=== PATIENT | female | born 1955 | race African-American/Black ===

== ENCOUNTER 2020-04-10 13:27 | Emergency (ER) | payer MEDICAID ==
[~2020-04-10] VITALS: Ht 170.2 cm; Wt 122.0 kg
[2020-04-10 14:46] LABS: BASOPHILS % 0.9 % (0.0-2.0); EOSINOPHILS % 3.6 % (0.0-5.0); HEMATOCRIT. 42.5 % (36.0-48.0); HEMOGLOBIN. 13.8 g/dL (12.0-16.0); MEAN CORPUSCULAR HEMOGLOBIN 29.9 pg (28.0-32.0); MEAN CORPUSCULAR VOLUME 92.1 fL (81.0-99.0); MONOCYTES % 6.8 % (2.0-8.0); NEUTROPHILS % 51.7 % (40.0-76.0); PLATELET 228 x1000/uL (130-400); RED BLOOD CELL COUNT 4.61 mill/uL (4.2-5.4); RED CELL DISTRIBUTION WIDTH 13.6 % (11.6-14.6)
[2020-04-10 14:52] LABS: CHLORIDE 108 mEq/L (98-107)
[2020-04-10 14:56] LABS: INR 1.1; PARTIAL THROMBOPLASTIN TIME 27.8 sec (23.4-31.0); PROTHROMBIN TIME 11.6 sec (9.6-11.0)
[2020-04-10] MEDS ORDERED: APIXABAN 5 MG TABLET PO STA (15:51)
[2020-04-10 16:57] VITALS: BP 215/106
== END 2020-04-10 17:03 | disposition home or self-care (01) ==
LOC: ER 13:44
DX: I82.401 Acute embolism and thrombosis of unspecified deep veins of right lower extremity (principal); M79.89 Other specified soft tissue disorders; I10 Essential (primary) hypertension; Z98.890 Other specified postprocedural states
CPT/HCPCS: 36415; 80053; 85025; 93005; 99284

== ENCOUNTER 2020-09-17 16:07 | Inpatient (IN) | payer MEDICAID, OTHER ==
[~2020-09-17] VITALS: Ht 170.2 cm; Wt 122.5 kg
[2020-09-17 17:54] LABS: BASOPHILS % 0.5 % (0.0-2.0); EOSINOPHILS % 4.2 % (0.0-5.0); HEMOGLOBIN. 14.6 g/dL (12.0-16.0); LYMPHOCYTES % 27.8 % (20.0-50.0); MEAN CORPUSCULAR HEMOGLOBIN 30.5 pg (28.0-32.0); MEAN CORPUSCULAR VOLUME 89.5 fL (81.0-99.0); MEAN PLATELET VOLUME 8.7 fl (7.4-10.4); MONOCYTES % 9.9 % (2.0-8.0); NEUTROPHILS % 57.6 % (40.0-76.0); PLATELET 220 x1000/uL (130-400); RED CELL DISTRIBUTION WIDTH 13.2 % (11.6-14.6)
[2020-09-17 17:57] LABS: CHLORIDE 112 mEq/L (98-107)
[2020-09-17] MEDS ORDERED: IOHEXOL-350 100 ML BOTTLE ONE (19:44)
[2020-09-17] MEDS ORDERED: [UNRECOGNIZED DRUG - REMARK] XX SCH (20:45)
[2020-09-17] MEDS ORDERED: AMLODIPINE 10MG TABLET PO ONE (21:00)
[2020-09-17] MEDS ORDERED: HYDRALAZINE HCL 10MG TABLET PO ONE (21:00)
[2020-09-17] MEDS ORDERED: HEPARIN BOLUS PRN aPTT 37-44 IV (21:15)
[2020-09-17] MEDS ORDERED: HEPARIN BOLUS PRN aPTT <36 IV (21:15)
[2020-09-17] MEDS ORDERED: HEPARIN 80 UNITS/KG BOLUS IV NR (21:30)
[2020-09-17] MEDS: HEPARIN 25,000 UNITS PREMIX 250 ML IV SCH (22:34)
[2020-09-18] VITALS (11 sets, daily range): BP systolic 110–169; BP diastolic 67–119
[2020-09-18] MEDS: CLONIDINE 0.2MG TABLET PO PRN ×3 (00:14→18:06)
[2020-09-18] MEDS ORDERED: MAGNESIUM 2 G PREMIX 50 ML IV ONE (02:00)
[2020-09-18] MEDS ORDERED: POTASSIUM CHLORIDE INJ 40 MEQ in DEXT 5% WATER 250 ML IV ONE (02:00)
[2020-09-18] MEDS ORDERED: ALTEPLASE 100 MG in CONTAINER,EMPTY 1 BAG IV NR (02:30)
[2020-09-18] MEDS ORDERED: ONDANSETRON HCL 4MG/2ML INJ IV PRN (12:45)
[2020-09-18] MEDS ORDERED: CLONIDINE 0.1MG TABLET PO PRN (12:45)
[2020-09-18] MEDS ORDERED: DIPHENHYDRAMINE 50MG/ML VIAL IV PRN (12:45)
[2020-09-18] MEDS ORDERED: ACETAMINOPHEN 325MG TABLET PO PRN (12:45)
[2020-09-18] MEDS ORDERED: IPRATROPIUM/ALBUTEROL 0.5-3(2.5)MG/3ML NEB HHN PRN (12:45)
[2020-09-18] MEDS: HEPARIN 25,000 UNITS PREMIX 250 ML IV SCH (14:09)
[2020-09-18] MEDS ORDERED: MAGN400C PO (17:23)
[2020-09-18] MEDS ORDERED: AMLO10TA80 MT (17:23)
[2020-09-18] MEDS: ENOXAPARIN 120MG/0.8ML SYR SUBCUT SCH (21:47)
[2020-09-19] VITALS (18 sets, daily range): BP systolic 116–164; BP diastolic 63–93
[2020-09-19 05:53] LABS: CHLORIDE 114 mEq/L (98-107); INR 1.3; PROTHROMBIN TIME 13.3 sec (9.6-11.0)
[2020-09-19 06:00] LABS: LDL CHOLESTEROL 122 mg/dL (5-100)
[2020-09-19 06:01] LABS: HDL CHOLESTEROL 45 mg/dL (40-59)
[2020-09-19 06:28] LABS: BASOPHILS % 0.4 % (0.0-2.0); EOSINOPHILS % 7.2 % (0.0-5.0); HEMATOCRIT. 37.5 % (36.0-48.0); HEMOGLOBIN. 12.4 g/dL (12.0-16.0); LYMPHOCYTES % 37.4 % (20.0-50.0); MEAN CORPUSCULAR HEMOGLOBIN 30.2 pg (28.0-32.0); MEAN CORPUSCULAR VOLUME 90.8 fL (81.0-99.0); MEAN PLATELET VOLUME 8.9 fl (7.4-10.4); MONOCYTES % 10.9 % (2.0-8.0); NEUTROPHILS % 44.1 % (40.0-76.0); PLATELET 179 x1000/uL (130-400); RED BLOOD CELL COUNT 4.13 mill/uL (4.2-5.4); RED CELL DISTRIBUTION WIDTH 13.5 % (11.6-14.6)
[2020-09-19] MEDS: ENOXAPARIN 120MG/0.8ML SYR SUBCUT SCH ×2 (08:24→20:03)
[2020-09-19] MEDS ORDERED: POTASSIUM CHLORIDE 20MEQ/PACKET PO SCH (09:00)
[2020-09-20] VITALS (12 sets, daily range): BP systolic 130–176; BP diastolic 65–98
[2020-09-20] MEDS: CLONIDINE 0.2MG TABLET PO PRN (06:16)
[2020-09-20 07:31] LABS: BASOPHILS % 0.5 % (0.0-2.0); EOSINOPHILS % 6.8 % (0.0-5.0); HEMATOCRIT. 37.6 % (36.0-48.0); HEMOGLOBIN. 12.6 g/dL (12.0-16.0); LYMPHOCYTES % 42.9 % (20.0-50.0); MEAN CORPUSCULAR HEMOGLOBIN 29.9 pg (28.0-32.0); MEAN CORPUSCULAR VOLUME 89.6 fL (81.0-99.0); MEAN PLATELET VOLUME 9.2 fl (7.4-10.4); MONOCYTES % 9.8 % (2.0-8.0); PLATELET 204 x1000/uL (130-400); RED CELL DISTRIBUTION WIDTH 13.5 % (11.6-14.6)
[2020-09-20 07:46] LABS: CHLORIDE 111 mEq/L (98-107)
[2020-09-20] MEDS: ENOXAPARIN 120MG/0.8ML SYR SUBCUT SCH ×2 (08:30→20:43)
[2020-09-20] MEDS ORDERED: POTASSIUM CHLORIDE 20MEQ TABLET SR PO NR (12:00)
[2020-09-21] VITALS (10 sets, daily range): BP systolic 135–165; BP diastolic 70–90
[2020-09-21 05:45] LABS: BASOPHILS % 0.5 % (0.0-2.0); EOSINOPHILS % 5.7 % (0.0-5.0); HEMATOCRIT. 39.6 % (36.0-48.0); LYMPHOCYTES % 45.4 % (20.0-50.0); MEAN CORPUSCULAR HEMOGLOBIN 30.1 pg (28.0-32.0); MEAN CORPUSCULAR VOLUME 91.6 fL (81.0-99.0); MEAN PLATELET VOLUME 9.4 fl (7.4-10.4); MONOCYTES % 9.3 % (2.0-8.0); NEUTROPHILS % 39.1 % (40.0-76.0); PLATELET 204 x1000/uL (130-400); RED BLOOD CELL COUNT 4.32 mill/uL (4.2-5.4); RED CELL DISTRIBUTION WIDTH 13.4 % (11.6-14.6)
[2020-09-21 05:47] LABS: CHLORIDE 110 mEq/L (98-107)
[2020-09-21] MEDS: ENOXAPARIN 120MG/0.8ML SYR SUBCUT SCH (09:15)
[2020-09-21] MEDS ORDERED: APIX5TAB MT (09:16)
[2020-09-21] MEDS ORDERED: APIX5TAB PO (09:16)
== END 2020-09-21 18:14 | disposition home or self-care (01) | DRG 134 ==
LOC: ER 19:48 → MICUSO 20:14 → EDBEDREQTM 20:19 → EDBEDREQ 20:19 → 5EST 09-18 11:18
PROVIDERS: ADMIT Internal Medicine; ATTEND Internal Medicine
DX: I26.92 Saddle embolus of pulmonary artery without acute cor pulmonale (principal); I82.433 Acute embolism and thrombosis of popliteal vein, bilateral; E66.01 Morbid (severe) obesity due to excess calories; E87.6 Hypokalemia; K44.9 Diaphragmatic hernia without obstruction or gangrene; Z20.822 Contact with and (suspected) exposure to COVID-19; I10 Essential (primary) hypertension; Z86.718 Personal history of other venous thrombosis and embolism; Z86.73 Personal history of transient ischemic attack (TIA), and cerebral infarction without residual deficits; Z79.899 Other long term (current) drug therapy; Z68.41 Body mass index [BMI] 40.0-44.9, adult; R00.1 Bradycardia, unspecified; R53.1 Weakness
CPT/HCPCS: 36415; 71045; 71275; 80048; 80053; 80061; 83735; 83880; 84443; 84484; 85025; 87426; 93005; 93306; 93970; 99291; J1644; J1650; J2997; J3475; J3480; J7060; Q9967